=== PATIENT | female | born 2000 | race Caucasian/White ===

== ENCOUNTER 2024-03-01 17:48 | Observation (INO) | payer MEDICAID ==
[~2024-03-01] VITALS: Ht 182.9 cm; Wt 89.0 kg
[2024-03-01] MEDS ORDERED: METR-265 PO (17:55)
[2024-03-01] MEDS: ONDANSETRON 4MG 2ML VIAL IV ONE (18:27)
[2024-03-01] MEDS: KETOROLAC 30 MG/ML 1ML VIAL IV ONE (18:28)
[2024-03-01 18:40] LABS: BASO # 0.1 10^3/uL (0.0-0.2); BASO % 0.6 % (0.0-1.0); EOS # 0.3 10^3/uL (0.0-0.5); EOS % 2.9 % (0.0-3.0); HEMATOCRIT 38.7 % (36.0-47.0); HEMOGLOBIN 12.8 g/dl (12.0-15.5); LYMPH # 2.6 10^3/uL (1.5-5.0); MEAN CORPUSCULAR HEMOGLOBIN 29.4 pg (27.0-33.0); MEAN CORPUSCULAR HGB CONC 33.1 g/dl (32.0-36.5); MONO # 0.6 10^3/uL (0.0-0.8); MONO % 7.3 % (2.0-8.0); NEUTROPHILS # 5.2 10^3/uL (1.5-8.5); PLATELET COUNT, AUTOMATED 346 10^3/uL (150-450); RED BLOOD COUNT 4.35 10^6/uL (4.00-5.40); WHITE BLOOD COUNT 8.7 10^3/uL (4.0-10.0)
[2024-03-01 18:52] LABS: LIPASE 39 U/L (12-53)
[2024-03-01 18:54] LABS: ALBUMIN 4.1 G/DL (3.2-5.2); ALKALINE PHOSPHATASE 54 U/L (46-116); ALT/SGPT 18 U/L (7.0-40); AST/SGOT 13 U/L (<34); BILIRUBIN,DIRECT 0.1 MG/DL (<0.4); BILIRUBIN,TOTAL 0.3 MG/DL (0.3-1.2)
[2024-03-01 19:12] LABS: HCG, SERUM QUALITATIVE NEGATIVE (NEGATIVE)
[2024-03-01] MEDS: MORPHINE 4 MG/ML 1ML VIAL IV ONE (19:16)
[2024-03-01] MEDS: NS 1,000 ML IV ONE (19:16)
[2024-03-01] MEDS: MORPHINE 4 MG/ML 1ML VIAL IV PRN (20:02)
[2024-03-01] MEDS: ACETAMINOPHEN *IV* 1,000 MG in IV 1 EA IV ONE (20:57)
[2024-03-01 22:19] LABS: Trichomonas vaginalis (AMP) NOT DETECTED (NEGATIVE)
[2024-03-01 22:43] LABS: GC DNA AMPLIFICATION NEGATIVE (NEGATIVE)
[2024-03-02] MEDS ORDERED: KETOROLAC 30 MG/ML 1ML VIAL IV PRN (00:45)
[2024-03-02] MEDS ORDERED: MORPHINE 4 MG/ML 1ML VIAL IV PRN (00:45)
[2024-03-02] MEDS ORDERED: MOM 30ML SUSPENSION UDC PO PRN (00:45)
[2024-03-02] MEDS ORDERED: IBUPOTC PO (00:50)
[2024-03-02] MEDS ORDERED: THERTAB52 PO (00:50)
[2024-03-02] MEDS ORDERED: ACET-897 PO (00:50)
[2024-03-02] MEDS ORDERED: HOME MED LIST COMPLETE! XX SCH (00:55)
[2024-03-02] MEDS: TAMSULOSIN 0.4 MG CAP PO SCH (01:29)
[2024-03-02] MEDS: KETOROLAC 30 MG/ML 1ML VIAL IV SCH (01:29)
[2024-03-02] MEDS: metroNIDAZOLE (FLAGYL) 500MG TABLET PO SCH (01:29)
[2024-03-02] MEDS: ACETAMINOPHEN 500 MG TAB PO SCH (06:12)
[2024-03-02 08:30] LABS: BLOOD UREA NITROGEN 12 MG/DL (9-23); CALCIUM LEVEL 8.2 MG/DL (8.5-10.1); CARBON DIOXIDE LEVEL 25 MMOL/L (20-31); CHLORIDE LEVEL 109 MMOL/L (98-107); CREATININE FOR GFR 1.05 MG/DL (0.55-1.30); GLOMERULAR FILTRATION RATE > 60.0 (>60); GLUCOSE, FASTING 84 MG/DL (60-100); POTASSIUM SERUM 3.8 MMOL/L (3.5-5.1); SODIUM LEVEL 138 MMOL/L (136-145)
[2024-03-02] MEDS: DOCUSATE SODIUM 100MG CAPSULE PO SCH (08:42)
[2024-03-02] MEDS: oxyCODONE 5MG TAB PO PRN (08:43)
[2024-03-02 09:40] VITALS: BP 117/75; TEMP 97.5; O2SAT 100
[2024-03-02 12:00] VITALS: BP 104/50; TEMP 97.8; O2SAT 96
[2024-03-02 15:41] VITALS: BP 111/73; TEMP 97.9; O2SAT 99
[2024-03-02] MEDS: ONDANSETRON 4MG 2ML VIAL IV PRN (18:23)
[2024-03-02 20:53] VITALS: BP 99/57; TEMP 98.2; O2SAT 100
[2024-03-03] VITALS: BP 116/66; TEMP 97.6; O2SAT 96
[2024-03-03 06:17] VITALS: BP 124/68; TEMP 98.7; O2SAT 100
[2024-03-03 07:53] VITALS: BP 116/67; TEMP 98.6; O2SAT 97
[2024-03-03] MEDS: PANTOPRAZOLE 40MG TAB (PROTONIX) PO SCH (08:18)
[2024-03-03] MEDS: MAALOX 30 ML SUSP *UDC PO PRN (09:37)
[2024-03-03] MEDS ORDERED: FLOM0.4C39 PO (10:49)
[2024-03-03] MEDS ORDERED: PANT40TA29 PO (10:49)
== END 2024-03-03 12:25 | disposition home or self-care (01) ==
LOC: M ED 17:48 → M ED INP 17:49 → UNDOADMOB 03-02 00:42 → M ED INP 03-02 00:42 → INTOOBSV 03-02 00:42 → M ED INP 03-02 09:35 → M PED 03-02 09:35
PROVIDERS: ADMIT Student in an Organized Health Care Education/Training Program; ATTEND Student in an Organized Health Care Education/Training Program
DX: R10.32 Left lower quadrant pain (principal); N20.0 Calculus of kidney; E87.20 Acidosis, unspecified; N76.0 Acute vaginitis; Q87.40 Marfan syndrome, unspecified; Z79.899 Other long term (current) drug therapy
CPT/HCPCS: 36415; 74176; 76856; 80047; 80048; 80076; 81001; 83605; 83690; 84703; 85025; 87661; 87810; 87850; 93976; 96374; 96375; 96376; 99284; J0131; J1885; J2405

== ENCOUNTER 2024-03-07 07:26 | Observation (INO) | payer MEDICAID, OTHER ==
[~2024-03-07] VITALS: Ht 182.9 cm; Wt 89.0 kg
[~2024-03-07 07:26] MED LIST: ACET-897 PO; FLOM0.4C39 PO; IBUPOTC PO; METR-265 PO; PANT40TA29 PO; THERTAB52 PO
[2024-03-07 11:13] LABS: BASO % 0.3 % (0.0-1.0); EOS # 0.1 10^3/uL (0.0-0.5); EOS % 0.7 % (0.0-3.0); HEMATOCRIT 40.3 % (36.0-47.0); HEMOGLOBIN 13.8 g/dl (12.0-15.5); LYMPH # 1.7 10^3/uL (1.5-5.0); LYMPH % 15.6 % (24.0-44.0); MEAN CORPUSCULAR HEMOGLOBIN 29.7 pg (27.0-33.0); MEAN CORPUSCULAR HGB CONC 34.2 g/dl (32.0-36.5); MEAN CORPUSCULAR VOLUME 86.9 fl (80.0-96.0); MONO # 0.7 10^3/uL (0.0-0.8); MONO % 6.1 % (2.0-8.0); NEUTROPHILS # 8.3 10^3/uL (1.5-8.5); NEUTROPHILS % 77.1 % (36.0-66.0); PLATELET COUNT, AUTOMATED 352 10^3/uL (150-450); RED BLOOD COUNT 4.64 10^6/uL (4.00-5.40); WHITE BLOOD COUNT 10.7 10^3/uL (4.0-10.0)
[2024-03-07] MEDS: NS 1,000 ML IV ONE (11:22)
[2024-03-07] MEDS: MORPHINE 4 MG/ML 1ML VIAL IV PRN (11:23)
[2024-03-07] MEDS: ONDANSETRON 4MG 2ML VIAL IV ONE (11:23)
[2024-03-07 11:30] LABS: BLOOD UREA NITROGEN 20 MG/DL (9-23); CALCIUM LEVEL 10.3 MG/DL (8.5-10.1); CARBON DIOXIDE LEVEL 23 MMOL/L (20-31); CHLORIDE LEVEL 104 MMOL/L (98-107); CREATININE FOR GFR 0.97 MG/DL (0.55-1.30); GLOMERULAR FILTRATION RATE > 60.0 (>60); GLUCOSE, FASTING 92 MG/DL (60-100); POTASSIUM SERUM 4.4 MMOL/L (3.5-5.1); SODIUM LEVEL 135 MMOL/L (136-145)
[2024-03-07] MEDS: HYDROMORPHONE HCL 0.5 MG/ 0.5 ML SYRINGE IV PRN (12:36)
[2024-03-07] MEDS: PERCOCET 5MG/325MG TAB PO ONE (14:06)
[2024-03-07] MEDS ORDERED: ONDA-282 PO (15:15)
[2024-03-07] MEDS ORDERED: PERC5TAB12 PO (15:15)
[2024-03-07] MEDS ORDERED: OMEP40CA4 PO (15:15)
[2024-03-07] MEDS ORDERED: FLOM0.4C39 PO (15:15)
[2024-03-07] MEDS: KETOROLAC 30 MG/ML 1ML VIAL IV ONE (15:46)
[2024-03-07] MEDS ORDERED: SUMA50TA2 PO (18:25)
[2024-03-07] MEDS ORDERED: HOME MED LIST COMPLETE! XX SCH (18:30)
[2024-03-07] MEDS: TAMSULOSIN 0.4 MG CAP PO SCH (21:16)
[2024-03-07] MEDS: cefTRIAXone SOD 1 GM in D5W MINI-BAG PLUS 50 ML IV SCH (21:17)
[2024-03-08] MEDS: ONDANSETRON 4MG TAB PO PRN (03:23)
[2024-03-08] MEDS: ACETAMINOPHEN TAB 650MG DOSE (2X325MG) PO PRN (05:36)
[2024-03-08 08:00] VITALS: BP 132/61; O2SAT 99
[2024-03-08] MEDS: PANTOPRAZOLE 40MG VIAL IV SCH (08:44)
[2024-03-08] MEDS: ALPRAZolam 0.25 MG TAB PO ONE (10:03)
[2024-03-08 11:45] LABS: HEMATOCRIT 37.1 % (36.0-47.0); HEMOGLOBIN 12.6 g/dl (12.0-15.5); MEAN CORPUSCULAR HEMOGLOBIN 29.8 pg (27.0-33.0); MEAN CORPUSCULAR VOLUME 87.7 fl (80.0-96.0); PLATELET COUNT, AUTOMATED 307 10^3/uL (150-450); RED BLOOD COUNT 4.23 10^6/uL (4.00-5.40); WHITE BLOOD COUNT 5.5 10^3/uL (4.0-10.0)
[2024-03-08 12:08] LABS: ALBUMIN 3.5 G/DL (3.2-5.2); ALKALINE PHOSPHATASE 53 U/L (46-116); ALT/SGPT 160 U/L (7.0-40); AST/SGOT 45 U/L (<34); BILIRUBIN,TOTAL 0.6 MG/DL (0.3-1.2); BLOOD UREA NITROGEN 13 MG/DL (9-23); CALCIUM LEVEL 9.6 MG/DL (8.5-10.1); CARBON DIOXIDE LEVEL 26 MMOL/L (20-31); CHLORIDE LEVEL 107 MMOL/L (98-107); CREATININE FOR GFR 0.93 MG/DL (0.55-1.30); GLOMERULAR FILTRATION RATE > 60.0 (>60); GLUCOSE, FASTING 91 MG/DL (60-100); POTASSIUM SERUM 4.6 MMOL/L (3.5-5.1); SODIUM LEVEL 140 MMOL/L (136-145); TOTAL PROTEIN 6.3 G/DL (5.7-8.2)
[2024-03-08] MEDS ORDERED: FLOM0.4C39 PO (12:15)
[2024-03-08] MEDS ORDERED: OXYC1TAB23 PO (12:15)
[2024-03-08 12:27] VITALS: BP 103/66; TEMP 97.8; O2SAT 97
== END 2024-03-08 15:38 | disposition home or self-care (01) ==
LOC: M ED 07:26 → M ED INP 07:27 → UNDOADMOB 19:32
PROVIDERS: ADMIT Hospitalist; ATTEND Hospitalist
DX: N20.1 Calculus of ureter (principal); R10.32 Left lower quadrant pain; F41.9 Anxiety disorder, unspecified; D72.829 Elevated white blood cell count, unspecified; Q87.40 Marfan syndrome, unspecified; Z79.899 Other long term (current) drug therapy; Z88.8 Allergy status to other drugs, medicaments and biological substances
CPT/HCPCS: 36415; 74176; 80048; 80053; 81001; 83605; 85025; 85027; 87040; 96365; 96375; 96376; 99285; J0696; J1170; J1885; J2405; J2470